=== PATIENT | female | born 1940 | race Caucasian/White ===

== ENCOUNTER → 2016-09-29 | Outpatient (CLI) | payer MEDICARE, OTHER ==
[~2016-09-29] MED LIST: ALPR0.254 PO; ATEN50TA PO; CA C1TAB36 PO; CHOL200044 PO; CRAN300T PO; GABA600T2 PO; HYDR-2666 PO; IOHEXOL 300 MG/ML 50 ML VIAL. INT ART ONE; LIDOCAINE 1% Multi-Dose 20 ML VIAL. ID ONE; METF500T4 PO; OMEG1CAP16 PO; PANT40TA5 PO; PRAV80TA2 PO; methylPREDNISolone ACETATE 40 MG/ML VIAL. INT ART ONE
--- NOTE | 2016-09-29 17:21 | KCIC ---
Left Shoulder Arthrogram: Indications: Left shoulder pain. Fluoroscopy time: 1:18 minutes. A single spot image was obtained. Procedure: Risks, benefits and complications including bleeding, infection, blood vessel damage or joint infection were discussed with the patient. Questions were answered and consent form signed. The patient was placed supine on the fluoroscopy table with the shoulder slightly externally rotated. Bony landmarks were used to plan for fluoroscopic injection. The patient was carefully prepped and draped in a sterile fashion. Using fluoroscopic guidance, local anesthetic and a 22 gauge needle the joint space was entered. Intra-articular location was confirmed as 80 mg Depo-Medrol was injected into the joint space. The needle was removed. Patient tolerated the procedure well and left the department in stable condition. Impression: Status post left shoulder arthrocentesis. Electronically signed by: Freeman Cornelius MD (09/29/2016 5:18 PM)
== END | disposition home or self-care (01) ==
LOC: KCIC 12:36
PROVIDERS: ATTEND Physician Assistant Surgical
DX: M25.512 Pain in left shoulder (principal); G89.29 Other chronic pain
CPT/HCPCS: 20610; 77002; J1030; Q9967

== ENCOUNTER 2017-05-01 10:12 | Day surgery (SDC) | payer MEDICARE, OTHER ==
[~2017-05-01 10:12] MED LIST changes: -ALPR0.254 PO; -ATEN50TA PO; -CA C1TAB36 PO; -CHOL200044 PO; -CRAN300T PO; +DEXAMETHASONE SOD PHOS 20 MG/5 ML VIAL.; -GABA600T2 PO; -HYDR-2666 PO; +HYDROmorphone 2 MG/ML VIAL IV; -IOHEXOL 300 MG/ML 50 ML VIAL. INT ART ONE; -LIDOCAINE 1% Multi-Dose 20 ML VIAL. ID ONE; +LIDOCAINE 1% PF 2 ML VIAL. ID; +LIDOCAINE 2% PF Vial for OR 5 ML VIAL.; -METF500T4 PO; +MORPHINE SULFATE 2 MG/ML DISP.SYRIN. IV; -OMEG1CAP16 PO; +ONDANSETRON PF 4 MG/2 ML VIAL.; +ONDANSETRON PF 4 MG/2 ML VIAL. IV; -PANT40TA5 PO; -PRAV80TA2 PO; +PROCHLORPERAZINE 10 MG/2 ML VIAL. IV; +PROPOFOL 20 ML IV; +fentaNYL PF VIAL 100 MCG/2 ML VIAL IV; -methylPREDNISolone ACETATE 40 MG/ML VIAL. INT ART ONE
[2017-05-01] MEDS ORDERED: fentaNYL PF VIAL 100 MCG/2 ML VIAL (10:33)
[2017-05-01 10:52] LABS: ADD MAN DIFF? NO
[2017-05-01] MEDS: IV RINGERS,LACTATED 1000ML 1,000 ML IV (10:55)
[2017-05-01 11:01] LABS: BASO % 0 % (0-3); EOS # 0.4 x10^3/uL (0.0-0.7); EOS % 5 % (0-3); HEMATOCRIT 38.4 % (36.0-47.0); HEMOGLOBIN 12.8 g/dL (12.0-15.5); LYMPH # 1.5 x10^3/uL (1.0-4.8); LYMPH % 18 % (24-48); MEAN CORPUSCULAR HEMOGLOBIN 31 pg (25-35); MEAN CORPUSCULAR HGB CONC 33 g/dL (31-37); MEAN CORPUSCULAR VOLUME 92 fL (79-100); MONO # 0.7 x10^3/uL (0.0-1.1); MONO % 9 % (0-9); NEUT # 5.8 x10^3uL (1.8-7.7); NEUT % 69 % (31-73); PLATELET COUNT 156 x10^3/uL (140-400); RED BLOOD COUNT 4.19 x10^6/uL (3.50-5.40); RED CELL DISTRIBUTION WIDTH 13.9 % (11.5-14.5); WHITE BLOOD COUNT 8.5 x10^3/uL (4.0-11.0)
[2017-05-01] MEDS ORDERED: POVIDONE-IODINE 10% TOPICAL OINTMENT 28GM TUBE. TP (11:07)
[2017-05-01 11:29] LABS: ANION GAP 9 (6-14); BLOOD UREA NITROGEN 10 mg/dL (7-20); BUN/CREATININE RATIO 10 (6-20); CALCIUM 9.2 mg/dL (8.5-10.1); CARBON DIOXIDE 29 mmol/L (21-32); CHLORIDE 102 mmol/L (98-107); GFR 54.2; GLUCOSE 99 mg/dL (70-99); POTASSIUM 4.2 mmol/L (3.5-5.1); SODIUM 140 mmol/L (136-145)
[2017-05-01 11:33] LABS: ALBUMIN 4.1 g/dL (3.4-5.0); ALBUMIN/GLOBULIN RATIO 1.1 (1.0-1.7); ALK PHOS 114 U/L (46-116); ALT (SGPT) 18 U/L (14-59); AST (SGOT) 21 U/L (15-37); TOTAL BILIRUBIN 0.4 mg/dL (0.2-1.0)
[2017-05-01] MEDS ORDERED: MIDAZOLAM HCL/PF 2 MG/2 ML VIAL. (11:47)
[2017-05-01] MEDS: BUPIVACAINE 0.5% 50 ML VIAL. (12:07)
[2017-05-01] MEDS: LIDOCAINE 1% 20 ML VIAL. (12:07)
[2017-05-01] MEDS: CLINDAMYCIN 900MG PREMIX 50 ML IV (12:10)
[2017-05-01] MEDS ORDERED: ONDANSETRON PF 4 MG/2 ML VIAL. (12:23)
[2017-05-01] MEDS ORDERED: METOPROLOL TARTRATE 5 MG/5 ML VIAL. (12:25)
[2017-05-01] MEDS: DEXAMETHASONE SOD PHOS 4 MG/ML VIAL (12:37)
== END 2017-05-01 13:50 | disposition home or self-care (01) ==
LOC: SURG 10:12
DX: M67.472 Ganglion, left ankle and foot (principal); E78.00 Pure hypercholesterolemia, unspecified; I10 Essential (primary) hypertension; M19.90 Unspecified osteoarthritis, unspecified site; E11.9 Type 2 diabetes mellitus without complications; F32.9 Major depressive disorder, single episode, unspecified; F17.200 Nicotine dependence, unspecified, uncomplicated; Z90.710 Acquired absence of both cervix and uterus; Z87.39 Personal history of other diseases of the musculoskeletal system and connective tissue
CPT/HCPCS: 28090; 36415; 80053; 85025; 88304; C1769; J1100; J2250; J2405; J2704; J3010; J3490